=== PATIENT | female | born 1975 | race Caucasian/White ===

== ENCOUNTER 2023-02-11 14:39 | Emergency (ER) | payer OTHER, SELFPAY ==
--- NOTE | 2023-02-11 14:45 | ED.URI ---
HPI - URI/Sore Throat General Chief Complaint: Upper Respiratory Infection Stated Complaint: Sore Throat Time Seen by Provider: 02/11/23 15:08 Source: patient and RN notes reviewed Mode of arrival: ambulatory Limitations: no limitations History of Present Illness HPI Narrative: 47-year-old female presents concern for 2 day history of sore throat, body aches, chills, sweats, headache, fatigue. Reports her daughter had similar symptoms recently. She reports she has been taking Tylenol and using Chloraseptic spray with only mild temporary relief MD elicited complaint: sore throat Related Data Home Medications Medication Instructions Recorded Confirmed albuterol sulfate 90 mcg/actuation 90 mcg inhalation DIRECTED 02/11/23 02/11/23 aerosol inhaler amlodipine 5 mg tablet 5 mg DIRECTED 02/11/23 02/11/23 atorvastatin 10 mg tablet 10 mg DIRECTED 02/11/23 02/11/23 duloxetine 60 mg capsule,delayed 60 mg PO DIRECTED 02/11/23 02/11/23 release ergocalciferol (vitamin D2) 1,250 1,250 mcg DIRECTED 02/11/23 02/11/23 mcg (50,000 unit) capsule metformin 500 mg tablet,extended 500 mg PO DIRECTED 02/11/23 02/11/23 release 24 hr tirzepatide 12.5 mg/0.5 mL 12.5 mg subcut DIRECTED 02/11/23 02/11/23 subcutaneous pen injector (Mounjaro) Allergies Allergy/AdvReac Type Severity Reaction Status Date / Time aspirin Allergy Mild Rash Verified 02/11/23 14:49 lisinopril Allergy Mild Cough Verified 02/11/23 14:49 Penicillins Allergy Mild Rash Verified 02/11/23 14:49 Review of Systems Review of Systems: CONSTITUTIONAL: Reports malaise, chills, sweats, fever. EYES: Denies visual changes, redness, or discharge. ENT: Denies rhinorrhea, congestion, sinus pain, otalgia. Reports postnasal drip and sore throat. CARDIOVASCULAR: Denies chest pain, palpitations, or edema. RESPIRATORY: Denies cough. Denies dyspnea. GASTROINTESTINAL: Denies abdominal pain, nausea, vomiting, diarrhea SKIN: Denies rash or itching. MUSCULOSKELETAL: Reports myalgia. NEUROLOGIC: Reports headache. All systems reviewed & are unremarkable except as noted in HPI and below PMFSH Family History Family History (Updated 04/18/12 @ 08:35 by DOCTOR UNKNOWN) Other Diabetes mellitus Hypertension Social History Social History Alcohol intake: current Comments At time of signature, agree with nursing past medical, surgical, social and family history. There is no relevant family history pertinent to the presenting complaint Exam Narrative: GENERAL: Well-appearing, well-nourished, and in no acute distress. HEAD: Normocephalic EYES: PERRLA, conjunctivae clear ENT: Nares clear. Mucous membranes moist. TM pearly corrales with sharp light reflex bilaterally; no tragal tenderness. Oropharynx erythematous without lesions. Tonsils not enlarged and with exudate, no drooling, no hoarseness, no trismus, uvula midline. NECK: Supple. No lymphadenopathy CHEST: Clear to auscultation, breath sounds equal. No wheezing, rhonchi, rales, or stridor. No respiratory distress, speaks in full sentences. HEART: Regular rate and rhythm. No murmur heard. SKIN: Warm, dry, no rash. NEURO: Alert and oriented x3. PSYCH: Normal mood and affect Course Course Emergency Course: Patient is aware of diagnosis, understands and agrees to treatment plan. Anticipatory guidance given. Patient agrees to follow-up as directed and is aware of reasons to seek care at the emergency department. Portions of this record may have been created with voice recognition software Level of Care: Express Care Visit Vital Signs Vital signs: Reviewed. MDM - URI/Sore Throat MDM Narrative Medical decision making narrative: Differential diagnosis considered: [place] virus, strep pharyngitis, allergic rhinitis, upper respiratory tract infection, sinusitis, rhinosinusitis, nasopharyngitis. viral pharyngitis, otitis media, otitis externa, pneumonia, bronchitis, viral cough syndrome,
[2023-02-11 14:55] VITALS: BP 120/86; PULSE 100; RESP 16; TEMP 36.4; O2SAT 100
== END 2023-02-11 15:26 | disposition home or self-care (01) ==
PROVIDERS: Emergency Provider Nurse Practitioner; PCP Nurse Practitioner Family
DX: J02.0 Streptococcal pharyngitis (principal); Z20.822 Contact with and (suspected) exposure to COVID-19; Z79.899 Other long term (current) drug therapy; Z79.84 Long term (current) use of oral hypoglycemic drugs
CPT/HCPCS: 87081; 87147; 87426; 87804; 87880; 99203; C9803; G0463